=== PATIENT | male | born 1945 | race Caucasian/White ===

== ENCOUNTER 2021-06-25 15:46 | Inpatient (IN) | payer OTHER, MEDICARE ==
[2021-06-25 16:42] VITALS: BMI 27.6
[2021-06-25 19:15] LABS: BASO % 1.2 % (0-2.0); EOS % 2.2 % (0-4.5); HEMOGLOBIN 9.3 GM/dL (11.7-16.9); LYMPH % 6.5 % (8-40); MCH 32.6 pg (25.7-33.7); MCHC 33.2 g/dl (32.0-35.9); MEAN CELL VOLUME 98.1 fl (80-96); MEAN PLT VOLUME 10.2 fl (7.5-11.1); MONO % 6.8 % (3.8-10.2); NEUT % 83.3 % (42.8-82.8); PLATELET COUNT 178 10^3/uL (134-434); RBC 2.85 M/mm3 (4.00-5.60); WHITE BLOOD COUNT 6.8 K/mm3 (4.0-10.0)
[2021-06-25 19:23] LABS: INR 1.09 (0.83-1.09); PROTHROMBIN TIME (PATIENT) 12.6 SEC (9.7-13.0)
[2021-06-25 19:26] LABS: ACTIVATED PTT 31.6 SECONDS (25.2-36.5)
[2021-06-25 19:48] LABS: N-TERMINAL BNP 6599.1 pg/ml (5-450)
[2021-06-25 20:03] LABS: ALK PHOS 282 U/L (45-117); ANION GAP 9 MMOL/L (8-16); BILIRUBIN,TOTAL 0.9 mg/dL (0.2-1); BLOOD UREA NITROGEN 133.4 mg/dL (7-18); CALCIUM 9.7 mg/dL (8.5-10.1); CHLORIDE 108 mmol/L (98-107); CO2 27 mmol/L (21-32); GLUCOSE,RANDOM 212 mg/dL (74-106); SGOT/AST 50 U/L (15-37); SGPT/ALT 85 U/L (13-61); SODIUM 144 mmol/L (136-145); TOT PROT 7.5 g/dl (6.4-8.2)
[2021-06-25] MEDS ORDERED: FUROSEMIDE 40 MG/4 ML INJECTABLE VIAL IVPUSH ONE (20:25)
[2021-06-25] MEDS ORDERED: FUROSEMIDE 40 MG/4 ML INJECTABLE VIAL ONE (20:58)
[2021-06-26] MEDS ORDERED: hydrALAZINE HCL 25 MG TABLET (FP) ONE (06:04)
[2021-06-26] MEDS ORDERED: HEPARIN NA (PORCINE) 5,000 UNITS/ML 1ML VIAL ONE ×2 (06:05→14:45)
[2021-06-26] MEDS: HEPARIN NA (PORCINE) 5,000 UNITS/ML 1ML VIAL SQ SCH ×2 (06:09→14:56)
[2021-06-26] MEDS: hydrALAZINE HCL 50 MG TABLET (FP) PO SCH ×2 (06:09→14:56)
[2021-06-26] MEDS ORDERED: INSULIN SLIDING SCALE (NOVOLOG) 1 VIAL SQ SCH (07:00)
[2021-06-26 08:26] LABS: BASO % 0.9 % (0-2.0); EOS % 2.2 % (0-4.5); HEMATOCRIT 26.2 % (35.4-49); HEMOGLOBIN 8.4 GM/dL (11.7-16.9); LYMPH % 9.8 % (8-40); MCH 32.2 pg (25.7-33.7); MCHC 32.3 g/dl (32.0-35.9); MEAN CELL VOLUME 99.6 fl (80-96); MEAN PLT VOLUME 10.5 fl (7.5-11.1); MONO % 8.3 % (3.8-10.2); NEUT % 78.8 % (42.8-82.8); PLATELET COUNT 163 10^3/uL (134-434); RBC 2.62 M/mm3 (4.00-5.60); RDW 14.5 % (11.9-15.9)
[2021-06-26 08:45] LABS: CHLORIDE 108 mmol/L (98-107); SODIUM 145 mmol/L (136-145)
[2021-06-26 09:01] LABS: CALCIUM 9.2 mg/dL (8.5-10.1)
[2021-06-26 09:02] LABS: ALBUMIN 3.7 g/dl (3.4-5.0); ANION GAP 11 MMOL/L (8-16); CO2 26 mmol/L (21-32); GLUCOSE,RANDOM 192 mg/dL (74-106); MAGNESIUM 2.9 mg/dL (1.8-2.4)
[2021-06-26 09:03] LABS: CHOLESTEROL 137 mg/dL (50-200)
[2021-06-26 09:04] LABS: SGPT/ALT 68 U/L (13-61)
[2021-06-26 09:05] LABS: CREATININE 5.8 mg/dL (0.55-1.3); PHOSPHOROUS 5.1 mg/dL (2.5-4.9); SGOT/AST 35 U/L (15-37)
[2021-06-26 09:06] LABS: ALK PHOS 254 U/L (45-117); BILIRUBIN,TOTAL 0.6 mg/dL (0.2-1); LDL CHOLESTEROL (ONLY SJRH) 64 mg/dL (5-100); TOT PROT 6.7 g/dl (6.4-8.2); TRIGLYCERIDES 81 mg/dL (0-150)
[2021-06-26 09:07] LABS: HDL CHOLESTEROL 54 mg/dL (40-60)
[2021-06-26] MEDS ORDERED: ASPIRIN COATED 81 MG TABLET.EC ONE (09:28)
[2021-06-26] MEDS ORDERED: FUROSEMIDE 40 MG/4 ML INJECTABLE VIAL ONE (09:28)
[2021-06-26] MEDS ORDERED: LEVOTHYROXINE NA 25 MCG TABLET (FP) ONE (09:28)
[2021-06-26] MEDS ORDERED: METOPROLOL TARTRATE 50 MG TABLET (FP) ONE (09:28)
[2021-06-26] MEDS ORDERED: PANTOPRAZOLE 40 MG TABLET ONE (09:28)
[2021-06-26] MEDS: ASPIRIN COATED 81 MG TABLET.EC PO SCH (09:54)
[2021-06-26] MEDS: PANTOPRAZOLE 40 MG TABLET PO SCH (09:54)
[2021-06-26] MEDS: LEVOTHYROXINE NA 25 MCG TABLET (FP) PO SCH (09:54)
[2021-06-26] MEDS: INSULIN SLIDING SCALE (NOVOLOG) 1 VIAL SQ SCH ×3 (09:54→17:19)
[2021-06-26] MEDS: METOPROLOL TARTRATE 50 MG TABLET (FP) PO SCH (09:54)
[2021-06-26] MEDS: FUROSEMIDE 40 MG/4 ML INJECTABLE VIAL IVPUSH SCH (09:54)
[2021-06-26 10:18] LABS: BLOOD UREA NITROGEN 131.8 mg/dL (7-18)
[2021-06-26] MEDS ORDERED: SODIUM CHLORIDE 250 ML IV PRN (12:02)
[2021-06-27] MEDS: ATORVASTATIN CA 40 MG TABLET (FP) PO SCH ×2 (00:48→21:24)
[2021-06-27] MEDS: hydrALAZINE HCL 50 MG TABLET (FP) PO SCH ×4 (00:49→21:24)
[2021-06-27] MEDS: METOPROLOL TARTRATE 50 MG TABLET (FP) PO SCH ×3 (00:49→21:24)
[2021-06-27] MEDS: HEPARIN NA (PORCINE) 5,000 UNITS/ML 1ML VIAL SQ SCH ×4 (00:49→21:24)
[2021-06-27] MEDS: INSULIN SLIDING SCALE (NOVOLOG) 1 VIAL SQ SCH ×5 (00:57→21:28)
[2021-06-27] MEDS: LEVOTHYROXINE NA 25 MCG TABLET (FP) PO SCH (06:53)
[2021-06-27 08:48] LABS: EPI CELLS 1 /uL (0-25.1); HYALINE CASTS 0 /uL (0-3.1); URINE APPEARANCE CLEAR; URINE BACTERIA 6 /uL (0-1359); URINE BILIRUBIN NEGATIVE (NEGATIVE); URINE COLOR YELLOW; URINE GLUCOSE (UA) NEGATIVE (NEGATIVE); URINE KETONE NEGATIVE (NEGATIVE); URINE LEUK ESTERASE NEGATIVE (NEGATIVE); URINE NITRITE NEGATIVE (NEGATIVE); URINE PROTEIN 1+ (NEGATIVE); URINE RBC 3 /uL (0-23.9); URINE UROBILINOGEN 0.2 mg/dL (0.2-1.0); URINE WBC 1 /uL (0-25.8)
[2021-06-27] MEDS ORDERED: PT OWN MED DRAWER 7, Y5N ONE (09:01)
[2021-06-27 09:10] LABS: BASO % 1.2 % (0-2.0); EOS % 5.1 % (0-4.5); HEMATOCRIT 28.2 % (35.4-49); HEMOGLOBIN 9.1 GM/dL (11.7-16.9); LYMPH % 9.3 % (8-40); MCH 31.8 pg (25.7-33.7); MCHC 32.3 g/dl (32.0-35.9); MEAN CELL VOLUME 98.5 fl (80-96); MEAN PLT VOLUME 9.9 fl (7.5-11.1); MONO % 8.8 % (3.8-10.2); NEUT % 75.6 % (42.8-82.8); PLATELET COUNT 158 10^3/uL (134-434); RBC 2.86 M/mm3 (4.00-5.60); RDW 14.5 % (11.9-15.9); WHITE BLOOD COUNT 5.3 K/mm3 (4.0-10.0)
[2021-06-27 09:37] LABS: ALBUMIN 3.4 g/dl (3.4-5.0); CALCIUM 9.2 mg/dL (8.5-10.1); CREATININE 4.1 mg/dL (0.55-1.3)
[2021-06-27] MEDS: FUROSEMIDE 40 MG/4 ML INJECTABLE VIAL IVPUSH SCH (09:39)
[2021-06-27] MEDS: PANTOPRAZOLE 40 MG TABLET PO SCH (09:39)
[2021-06-27] MEDS: ASPIRIN COATED 81 MG TABLET.EC PO SCH (09:40)
[2021-06-27 09:42] LABS: BILIRUBIN,TOTAL 1.1 mg/dL (0.2-1); TOT PROT 6.7 g/dl (6.4-8.2)
[2021-06-27 09:47] LABS: BLOOD UREA NITROGEN 82.2 mg/dL (7-18)
[2021-06-27] MEDS ORDERED: SODIUM CHLORIDE 250 ML IV PRN (16:42)
[2021-06-28] MEDS: LEVOTHYROXINE NA 25 MCG TABLET (FP) PO SCH (05:59)
[2021-06-28] MEDS: hydrALAZINE HCL 50 MG TABLET (FP) PO SCH ×3 (05:59→22:26)
[2021-06-28] MEDS: INSULIN SLIDING SCALE (NOVOLOG) 1 VIAL SQ SCH ×4 (06:09→22:22)
[2021-06-28] MEDS: HEPARIN NA (PORCINE) 5,000 UNITS/ML 1ML VIAL SQ SCH ×3 (06:11→22:26)
[2021-06-28 08:06] LABS: BASO % 1.2 % (0-2.0); EOS % 5.9 % (0-4.5); HEMATOCRIT 28.4 % (35.4-49); HEMOGLOBIN 9.8 GM/dL (11.7-16.9); LYMPH % 10.3 % (8-40); MCH 33.6 pg (25.7-33.7); MCHC 34.5 g/dl (32.0-35.9); MEAN CELL VOLUME 97.5 fl (80-96); MEAN PLT VOLUME 9.8 fl (7.5-11.1); MONO % 8.6 % (3.8-10.2); PLATELET COUNT 167 10^3/uL (134-434); RBC 2.91 M/mm3 (4.00-5.60); RDW 14.1 % (11.9-15.9); WHITE BLOOD COUNT 4.8 K/mm3 (4.0-10.0)
[2021-06-28 08:15] LABS: CALCIUM 8.6 mg/dL (8.5-10.1)
[2021-06-28 08:16] LABS: ALBUMIN 3.2 g/dl (3.4-5.0); BLOOD UREA NITROGEN 80.7 mg/dL (7-18)
[2021-06-28 08:19] LABS: CREATININE 3.9 mg/dL (0.55-1.3)
[2021-06-28 08:21] LABS: BILIRUBIN,TOTAL 0.8 mg/dL (0.2-1); TOT PROT 6.4 g/dl (6.4-8.2)
[2021-06-28] MEDS: METOPROLOL TARTRATE 50 MG TABLET (FP) PO SCH ×2 (11:15→22:26)
[2021-06-28] MEDS: ASPIRIN COATED 81 MG TABLET.EC PO SCH (11:15)
[2021-06-28] MEDS: PANTOPRAZOLE 40 MG TABLET PO SCH (11:15)
[2021-06-28] MEDS ORDERED: ATORVASTATIN CA 40 MG TABLET (FP) PO SCH (22:00)
[2021-06-29] MEDS: HEPARIN NA (PORCINE) 5,000 UNITS/ML 1ML VIAL SQ SCH ×3 (06:17→21:24)
[2021-06-29] MEDS: hydrALAZINE HCL 50 MG TABLET (FP) PO SCH ×3 (06:17→21:24)
[2021-06-29] MEDS: LEVOTHYROXINE NA 25 MCG TABLET (FP) PO SCH (06:17)
[2021-06-29] MEDS: INSULIN SLIDING SCALE (NOVOLOG) 1 VIAL SQ SCH ×4 (06:30→21:33)
[2021-06-29] MEDS: ASPIRIN COATED 81 MG TABLET.EC PO SCH (10:57)
[2021-06-29] MEDS: PANTOPRAZOLE 40 MG TABLET PO SCH (10:57)
[2021-06-29] MEDS: METOPROLOL TARTRATE 50 MG TABLET (FP) PO SCH ×2 (10:57→21:24)
[2021-06-29] MEDS ORDERED: SODIUM CHLORIDE 250 ML IV PRN ×2 (13:40→19:09)
[2021-06-29] MEDS ORDERED: LIDOCAINE HCL 1%, 10 MG/ML (20ML VIAL) ONE ×2 (14:25→16:13)
[2021-06-29] MEDS ORDERED: PROPOFOL 20 ML ONE (18:05)
[2021-06-29] MEDS ORDERED: MIDAZOLAM HCL 2 MG/2 ML SINGLE DOSE VIAL ONE (18:05)
[2021-06-29] MEDS ORDERED: LIDOCAINE HCL/PF 2% SDV 5ML VIAL ONE (18:05)
[2021-06-29] MEDS ORDERED: ceFAZolin SODIUM 1 GM VIAL ONE (18:06)
[2021-06-29] MEDS ORDERED: SODIUM CHLORIDE 0.9% P/F 10 ML VIAL IJ ONE (18:06)
[2021-06-29] MEDS ORDERED: ceFAZolin SODIUM 1 GM VIAL IVPB ONE (18:22)
[2021-06-29] MEDS ORDERED: LIDOCAINE HCL 1%, 10 MG/ML (20ML VIAL) NR ONE (18:29)
[2021-06-29] MEDS ORDERED: ONDANSETRON 4 MG/2 ML VIAL IVPUSH PRN (19:10)
[2021-06-29] MEDS ORDERED: LACTATED RINGERS SOLUTION 1,000 ML IV SCH (19:15)
[2021-06-29] MEDS ORDERED: ATORVASTATIN CA 40 MG TABLET (FP) PO SCH (22:00)
[2021-06-30] MEDS: HEPARIN NA (PORCINE) 5,000 UNITS/ML 1ML VIAL SQ SCH ×2 (06:18→15:06)
[2021-06-30] MEDS: hydrALAZINE HCL 50 MG TABLET (FP) PO SCH ×2 (06:18→17:57)
[2021-06-30] MEDS: INSULIN SLIDING SCALE (NOVOLOG) 1 VIAL SQ SCH ×3 (06:20→17:22)
[2021-06-30] MEDS ORDERED: LEVOTHYROXINE NA 25 MCG TABLET (FP) PO SCH (07:00)
[2021-06-30 08:42] LABS: CALCIUM 8.4 mg/dL (8.5-10.1)
[2021-06-30 08:46] LABS: CREATININE 2.4 mg/dL (0.55-1.3); PHOSPHOROUS 2.6 mg/dL (2.5-4.9)
[2021-06-30] MEDS ORDERED: ASPIRIN COATED 81 MG TABLET.EC PO SCH (10:00)
[2021-06-30] MEDS ORDERED: PANTOPRAZOLE 40 MG TABLET PO SCH (10:00)
[2021-06-30] MEDS: METOPROLOL TARTRATE 50 MG TABLET (FP) PO SCH (11:42)
[2021-06-30 14:31] VITALS: TEMP 98.3
[2021-06-30 18:04] VITALS: BP 144/72; PULSE 71
== END 2021-06-30 18:55 | disposition home or self-care (01) | DRG 291 ==
LOC: JER 15:46 → JERFT 15:46 → JERBED 20:28 → J8W 06-27 00:38 → J4W 06-27 23:01
PROVIDERS: ADMIT Hospitalist
PROC: 5A1D70Z Performance of Urinary Filtration, Intermittent, Less than 6 Hours Per Day (ICD-10-PCS; principal; 2021-06-26)
PROC: 06H033Z Insertion of Infusion Device into Inferior Vena Cava, Percutaneous Approach (ICD-10-PCS; 2021-06-29)
PROC: B549ZZA Ultrasonography of Inferior Vena Cava, Guidance (ICD-10-PCS; 2021-06-29)
DX: I13.2 Hypertensive heart and chronic kidney disease with heart failure and with stage 5 chronic kidney disease, or end stage renal disease (principal); I50.33 Acute on chronic diastolic (congestive) heart failure; N18.6 End stage renal disease; N17.9 Acute kidney failure, unspecified; E11.22 Type 2 diabetes mellitus with diabetic chronic kidney disease; E03.9 Hypothyroidism, unspecified; E11.51 Type 2 diabetes mellitus with diabetic peripheral angiopathy without gangrene; I25.10 Atherosclerotic heart disease of native coronary artery without angina pectoris; E78.5 Hyperlipidemia, unspecified; D53.9 Nutritional anemia, unspecified; M10.9 Gout, unspecified; I35.0 Nonrheumatic aortic (valve) stenosis; I36.1 Nonrheumatic tricuspid (valve) insufficiency
CPT/HCPCS: 36415; 71045-TC-FY; 71046-TC-FY; 76775-TC; 80048; 80053; 80061; 81003; 82550; 82553; 82607; 82728; 82746; 82962; 83036; 83540; 83550; 83735; 83880; 84100; 84466; 84484; 85025; 85045; 85610; 85730; 86769; 86803; 86850; 86900; 86901; 87340; 87804; 87807; 93005; 93010; 93306-TC; 94760; 99285-25; C9803; J1644; U0003; U0005